=== PATIENT | male | born 1995 | race Caucasian/White ===

== ENCOUNTER 2022-04-14 18:23 | Emergency (ER) | payer BC, SELFPAY ==
--- NOTE | 2022-04-14 18:35 | ED.DENTAL ---
HPI - Dental/Oral General Chief complaint: Dental/Oral Stated complaint: tooth inf Time Seen by Provider: 04/14/22 18:54 Source: patient, RN notes reviewed and old records reviewed Mode of arrival: ambulatory Limitations: no limitations History of Present Illness HPI Narrative: 27-year-old male presents to the [facility] with a dental infection to the right lower jaw. Has an appointment on Saturday morning with [facility] in [address] [place] [address]. Swelling and increased redness to the right lower posterior molar gingiva. Denies fevers States it has been draining blood and with thick white to green purulent drainage. Teeth map: 1. Related Data Home Medications Medication Instructions Recorded Confirmed Testosterone 04/14/22 Allergies Allergy/AdvReac Type Severity Reaction Status Date / Time No Known Allergies Allergy Unverified 04/14/22 18:35 Review of Systems Review of Systems: All systems reviewed & are unremarkable except as noted in HPI and below Constitutional: Constitutional: Reports no additional constitutional complaints Eyes: Eyes: Reports no additional eye complaints ENT: Reports as per HPI, Denies facial pain, Denies hoarseness and Reports mouth pain (Right lower posterior molar) Cardiovascular: Cardiovascular: Reports no additional cardiovascular complaints, Denies chest pain and Denies dyspnea Respiratory: Respiratory: Reports no additional respiratory complaints, Denies chest congestion, Denies cough and Denies dyspnea Gastrointestinal: Gastrointestinal: Reports no additional gastrointestinal complaints, Denies abdominal pain, Denies nausea and Denies vomiting Musculoskeletal: Musculoskeletal: Reports no additional musculoskeletal complaints Integumentary/Breasts: Skin/Breast: Reports system reviewed and no additional complaints, except as docu Neurologic: Reports system reviewed and no additional complaints, except as documented Psychiatric: Psychiatric: Reports no additional psychiatric complaints Allergic/Immunologic: Allergic/Immunologic: Reports no additional allergic/immunologic complaints PMFSH Social History Social History Gender identity (if verbalized by the patient): Male Comments At the time of my signature, I reviewed and agree with the nursing past medical, surgical, social, and family history. There is no relevant family history pertinent to the patient complaint. Exam Const: General: cooperative, healthy appearing, comfortable, no acute distress, well developed, alert and well nourished Nutritional Appearance: well nourished Orientation/consciousness: patient oriented x3 Limitations: no limitations HENMT: Head: normal to inspection Ears: hearing grossly normal bilaterally and external ears normal Face/Nose/Sinus: Normal external nose present, Normal nares present, Normal nasal mucous membranes and turbinates present and normal facial exam Face and sinus: normal facial exam Mouth: Yes Normal oral and palatal mucosa present, Yes tongue normal, Yes moist mucous membranes, Yes lip abnormal (Scab and minor swelling to the lower lip, patient reports that he bit it) and No muffled voice Teeth and gingiva: gingiva abnormal edematous, with purulent discharge (Around teeth 31 and 32), diffusely erythematous (Molars 04/16/2031) and tender and poor dentition Throat: posterior oropharynx normal and uvula midline Eyes: General: appearance normal, both eyes and all related structures Alignment and Position: alignment normal Periorbital: periorbital findings normal Conjunctivae: conjunctivae normal Pupils: Equal, round and reactive pupils present EOM: EOMs intact bilaterally Neck: Neck: normal visual inspection, full ROM, no lymphadenopathy and no meningeal signs Chest: Chest palpation & inspection: normal inspection of the chest Resp: Effort & Inspection: normal respiratory effort and able to speak in complete sentences
[2022-04-14 18:37] VITALS: BP 150/94; PULSE 101; RESP 16; TEMP 37.6; O2SAT 99
[2022-04-14 18:44] VITALS: BP 150/94; PULSE 101; RESP 16; TEMP 37.6; O2SAT 99
== END 2022-04-14 19:05 | disposition home or self-care (01) ==
PROVIDERS: Emergency Provider Nurse Practitioner
DX: K04.7 Periapical abscess without sinus (principal)
CPT/HCPCS: 99213; G0463

== ENCOUNTER 2023-06-07 12:59 | Emergency (ER) | payer BC, SELFPAY ==
[2023-06-07 13:17] VITALS: BP 149/86; PULSE 80; RESP 16; TEMP 37.2; O2SAT 98
--- NOTE | 2023-06-07 13:52 | ED.GENADULT ---
HPI - General Adult General Chief complaint: Skin/Abscess/Foreign Body Stated complaint: spider bite on face, throwing up,nauseous Time Seen by Provider: 06/07/23 13:43 Source: patient and RN notes reviewed Mode of arrival: ambulatory Limitations: no limitations History of Present Illness HPI narrative: Patient presents today complaining of an insect bite to his left forehead that was sustained 3 days ago because some immediate swelling. He has since been trying to squeeze the area and has reduce the size of the swelling to almost nothing. Yesterday, he developed nausea and vomiting, body aches, chills, rhinorrhea, fatigue, diarrhea. He vomited 4 times yesterday and 1 so far today. He has had 3-4 episodes of diarrhea per day. States he does have a small amount of blood in his stool, but has a known hemorrhoid. Denies sore throat or fever. He has been taking ibuprofen for his body aches with some relief. Related Data Allergies Allergy/AdvReac Type Severity Reaction Status Date / Time No Known Allergies Allergy Verified 06/07/23 13:03 Review of Systems Review of Systems: CONSTITUTIONAL: Denies fever, or sweats.+ body aches, chills, fatigue EYES: Denies visual changes, redness, or discharge. ENT: Denies congestion, sore throat, or otalgia.+ rhinorrhea CARDIOVASCULAR: Denies chest pain, palpitations, or edema. RESPIRATORY: Denies cough or dyspnea. GASTROINTESTINAL: Denies abdominal pain. + nausea, vomiting, diarrhea GENITOURINARY: Denies dysuria or hematuria. SKIN: Denies rash, itching.+ insect bite to forehead MUSCULOSKELETAL: Denies back pain, joint pain, or myalgia. NEUROLOGIC: Denies headache, numbness, tingling, or weakness. PSYCH: Denies depression or anxiety. PMFSH Social History Social History Gender identity (if verbalized by the patient): Male Comments At time of signature, I have reviewed and agree with nursing past medical, surgical, social and family history unless otherwise noted. Please see nursing chart for further information. There is no relevant family history pertinent to the presenting complaint Exam Narrative: GENERAL: Well-appearing, well-nourished, and in no acute distress. HEAD: Normocephalic, atraumatic. EYES: EOMI. No redness or drainage. Conjunctivae normal. ENT: Mucous membranes pink and moist. Nares clear. No rhinorrhea. TMs normal bilaterally. Throat normal. Uvula midline. NECK: Normal AROM. Supple. No lymphadenopathy. CHEST: No respiratory distress. Clear to auscultation. HEART: Regular rate and rhythm. No murmur appreciated. Normal peripheral pulses. ABDOMEN: Soft, nontender, nondistended, normal active bowel sounds. EXTREMITIES: Normal range of motion. No edema. SKIN: Warm, dry, no rash. Capillary refill normal. Normal skin turgor. Two small scabs to the left forehead. No surrounding erythema, edema, ecchymosis. NEURO: No focal deficits. Alert and oriented x3. Gait steady. PSYCH: Normal affect. No signs of depression or anxiety. Course Course Level of Care: Express Care Visit Vital Signs Vital signs: Vital Signs Temperature 98.9 F 06/07/23 13:17 Pulse Rate 80 06/07/23 13:17 Respiratory Rate 16 06/07/23 13:17 Blood Pressure 149/86 H 06/07/23 13:17 Pulse Oximetry 98 06/07/23 13:17 Oxygen Delivery Room Air 06/07/23 13:17 Temperature 98.9 F 06/07/23 13:17 Pulse Rate 80 06/07/23 13:17 Respiratory Rate 16 06/07/23 13:17 Blood Pressure 149/86 H 06/07/23 13:17 Pulse Oximetry 98 06/07/23 13:17 Oxygen Delivery Room Air 06/07/23 13:17 Reviewed Medical Decision Making MDM Narrative Medical decision making narrative: Influenza negative. Symptoms likely viral in etiology. Prescription for Zofran sent to pharmacy. Insect bite area to the forehead seems to be healing properly. No further treatment needed. Anticipatory guidance given. Differential Diagnosis
== END 2023-06-07 14:12 | disposition home or self-care (01) ==
PROVIDERS: Emergency Provider Nurse Practitioner
DX: B34.9 Viral infection, unspecified (principal); S00.86XA Insect bite (nonvenomous) of other part of head, initial encounter; W57.XXXA Bitten or stung by nonvenomous insect and other nonvenomous arthropods, initial encounter
CPT/HCPCS: 87804; 99213; G0463

== ENCOUNTER 2023-09-02 17:54 | Emergency (ER) | payer BC, SELFPAY ==
--- NOTE | ~2023-09-02 | XR_ITS ---
EXAMINATION: XR chest 2V Exam Date/Time: 09/02/2023 18:20 CDT HISTORY: LE edema Comparison: 02/20/2018. RESULT: Lines, tubes, and devices: None. Lungs and pleura: Clear. Cardiomediastinal silhouette: Stable. Other: No acute osseous or upper abdominal finding. IMPRESSION: No acute cardiopulmonary process. Reviewed, dictated and finalized at location K.
[2023-09-02 17:56] VITALS: BP 152/92; PULSE 82; RESP 16; TEMP 37; O2SAT 98
[2023-09-02 18:14] LABS: Basophils Absolute Auto 0.1 K/mm3 (0.0-0.1); Basophils Percent Auto 0.9 % (0.2-1.2); Eosinophils Absolute Auto 0.4 K/mm3 (0-0.3); Eosinophils Percent Auto 6.5 % (0-4.4); Hematocrit 44.5 % (42.0-52.0); Hemoglobin 15.7 g/dL (14.0-18.0); Immature Granulocyte Absolute 0.03 K/mm3 (0.00-0.031); Immature Granulocyte Percent A 0.5 % (0-0.5); Lymphocytes Absolute Auto 0.51 K/mm3 (0.9-3.2); Lymphocytes Percent Auto 8.1 % (18.3-44.2); Mean Corpuscular HGB Conc 35.3 g/dl (32-36); Mean Corpuscular Hemoglobin 30.9 pg (26-34); Mean Corpuscular Volume 87.6 fl (80-100); Monocytes Absolute Auto 0.6 K/mm3 (0.1-0.6); Monocytes Percent Auto 9.3 % (2.6-8.5); Neutrophils Absolute Auto 4.7 K/mm3 (1.3-6.7); Neutrophils Percent Auto 74.7 % (45.5-73.1); Platelet Count Result 285 k/mm3 (150-375); Red Blood Count 5.08 M/mm3 (4.6-6.20); White Blood Count 6.3 K/mm3 (4.5-10.0)
[2023-09-02 18:28] LABS: Alanine Aminotransferase 35 U/L (6-50); Albumin Level 4.5 g/dL (3.5-5.1); Alkaline Phosphatase 92 U/L (38-126); Anion Gap 7 mmol/L (4-12); Aspartate Amino Transferase 30 U/L (17-59); Bilirubin,Total 1.8 mg/dL (0.2-1.3); Blood Urea Nitrogen 18 mg/dL (9-20); Calcium 9.2 mg/dL (8.4-10.2); Carbon Dioxide 26 mmol/L (22-30); Chloride 104 mmol/L (98-107); Estimated CRCL calculation 103 ml/min; Estimated Glomerular Filt Rate > 60; Glucose 136 mg/dL (65-110); Potassium 3.7 mmol/L (3.4-5.0); Sodium 137 mmol/L (137-145)
--- NOTE | 2023-09-02 18:31 | ECG_ITS ---
Test Date: 2023-09-02 18:37:34 Measurements Intervals [place] Rate: 64 P: 48 DE: 165 QRS: 5 QRSD: 105 T: 8 QT: 388 QTc: 402 Interpretive Statements SINUS RHYTHM MINIMAL VOLTAGE CRITERIA FOR LVH, CONSIDER NORMAL VARIANT [MEETS CRITERIA IN ONE OF: R(aVL), S(V1), R(V5), R(V5/V6)+S(V1)] No previous ECG available for comparison Electronically Signed On 09-03-2023 12:01:45 CDT by Dominguez Newton M.D.
[2023-09-02 18:37] LABS: NT Pro B Type Natriuretic Pept 39 pg/mL (19.9-100)
--- NOTE | 2023-09-02 18:41 | ED.EXTPRO ---
HPI - Extremity Problem General Chief complaint: Extremity Problem,Nontraumatic Stated complaint: swollen feet Time Seen by Provider: 09/02/23 18:17 Source: patient Mode of arrival: ambulatory Limitations: no limitations History of Present Illness HPI Narrative: This is a 28 year old male that presents to the ER for lower extremity edema ongoing over the last couple of days. Reports he was at a music festival in [place]. Reports a lot of walking and being on his feet. He has had worsening swelling since yesterday. Reports some shortness of breath. Reports intermittent right sided chest pain which has been ongoing intermittently for a while. Denies fever, cough, or vomiting. Related Data Allergies Allergy/AdvReac Type Severity Reaction Status Date / Time No Known Allergies Allergy Verified 06/07/23 13:03 Review of Systems Review of Systems: CONSTITUTIONAL: Denies fever CARDIOVASCULAR: Reports chest pain, and edema. RESPIRATORY: Reports dyspnea. 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 HEAD: Normocephalic, atraumatic. EYES: EOMI. NECK: Supple. No adenopathy or masses. No JVD CHEST: Clear to auscultation. No respiratory distress. No wheezes rales or rhonchi HEART: Regular rate and rhythm. No murmur heard. Normal peripheral pulses. EXTREMITIES: Normal range of motion. 1+ pitting edema to the bilateral ankles and feet. Normal DP pulses. Normal sensation SKIN: Warm, dry, no rash. NEURO: No focal deficits. Alert and oriented x3. PSYCH: Normal mood and affect Course Course Emergency Course: patient updated on his workup and agrees with plan of care Vital Signs Vital signs: Vital Signs Temperature 98.6 F 09/02/23 17:56 Pulse Rate 82 09/02/23 17:56 Respiratory Rate 16 09/02/23 17:56 Blood Pressure 152/92 H 09/02/23 17:56 Pulse Oximetry 98 09/02/23 17:56 Oxygen Delivery Room Air 09/02/23 17:56 Temperature 98.6 F 09/02/23 17:56 Pulse Rate 82 09/02/23 17:56 Respiratory Rate 16 09/02/23 17:56 Blood Pressure 152/92 H 09/02/23 17:56 Pulse Oximetry 98 09/02/23 17:56 Oxygen Delivery Room Air 09/02/23 17:56 MDM - Extremity (Nontraumatic) MDM Narrative Medical decision making narrative: Patient presents to the emergency department for lower extremity edema. Ongoing over the last couple of days. Reports walking a lot being on his feet prior to this starting. No erythema or warmth of the legs. Normal peripheral pulses. His vitals are stable. CBC without leukocytosis. Metabolic panel with mild elevation in creatinine to 1.4. Also shows mild hyperbilirubinemia with total bili of 1.8. EKG without concerning changes and baseline troponin is negative. D-dimer is not elevated. BNP is not elevated. Chest x-ray without acute cardiopulmonary abnormality. Patient was updated on his workup and agrees with plan of care. Instructed to have further follow-up with primary provider. He was given warnings to return to the ER Differential Diagnosis Differential diagnosis: Likely cellulitis, superficial thrombophlebitis, deep vein thrombosis of lower extremity and other ( venous insufficiency, CHF) Lab Data Attestation: I reviewed the patient's lab results. 09/02/23 18:05 09/02/23 18:05 Labs: Lab Results 09/02/23 09/02/23 Range/Units 18:04 18:05 WBC 6.3 (4.5-10.0) K/mm3 RBC 5.08 (4.6-6.20) M/mm3 Hgb 15.7 (14.0-
[2023-09-02 19:35] LABS: INR 0.9
[2023-09-02 19:36] LABS: Partial Thromboplastin Time 30.4 Seconds (22.3-36.8)
[2023-09-02 20:06] LABS: Troponin I < 0.012 ng/mL (0.000-0.034)
[2023-09-02 20:28] LABS: D Dimer 0.35 ug/mL (<0.48)
[2023-09-02 22:20] VITALS: BP 136/76; PULSE 68; RESP 16; O2SAT 98
== END 2023-09-02 22:21 | disposition home or self-care (01) ==
PROVIDERS: Emergency Medicine; Emergency Provider Physician Assistant
DX: R60.0 Localized edema (principal); G71.11 Myotonic muscular dystrophy
CPT/HCPCS: 36415; 71046; 80053; 83880; 84484; 85025; 85380; 85610; 85730; 93005; 99284